=== PATIENT | female | born 1980 | race American Indian/Alaskan Native ===

== ENCOUNTER 2016-12-21 08:03 | Emergency (ER) | payer SELFPAY ==
[2016-12-21 10:43] LABS: Bilirubin,Urine NEG (Negative); Blood,Urine NEG (Negative); Ketones,Urine NEG (Negative); Leukocyte Esterase,Urine MOD (Negative); Nitrite,Urine NEG (Negative); Protein,Urine <15 mg/dL mg/dL (Negative); Urobilinogen,Urine < 2.0 mg/dL (<2.0)
--- NOTE | 2016-12-21 12:25 | Emergency Department Report ---
ED Female HPI - General Chief complaint: Urogenital-Female Stated complaint: YEAST INFECTION Time Seen by Provider: 12/21/16 11:18 Source: patient Mode of arrival: Ambulatory Limitations: No Limitations - History of Present Illness Initial comments: 36 y/o female presents to ER with complaints of white to cream coloured discharge 2 days. There is an associated vulva pruritus. Patient denies dyspareunia, no dysuria, no nausea vomiting or diarrhea.No fever. MD Complaint: vaginal discharge -: Gradual, days(s) (2) Location: other (vulva pruritus) Radiation: non-radiating Severity: moderate Improves with: none Worsens with: none Are you Now?: No Associated Symptoms: vaginal discharge. denies: vaginal bleeding, abdominal pain, nausea/vomiting, headaches, loss of appetite, dysuria, hematuria, rash, shortness of breath, syncope, weakness, other - Related Data Sexually active: Yes (monogamous relationship) Previous Rx's Medication Instructions Recorded Last Taken Type Fluconazole [Diflucan TAB] 150 mg PO ONCE #1 tablet 12/21/16 Unknown Rx Mupirocin [Bactroban 2%] 1 applic TP TID #1 tube 12/21/16 Unknown Rx metroNIDAZOLE [Flagyl] 500 mg PO Q12HR #14 tab 12/21/16 Unknown Rx Allergies Allergy/AdvReac Type Severity Reaction Status Date / Time No Known Allergies Allergy Unverified 12/21/16 08:09 ED Review of Systems ROS: Stated complaint: YEAST INFECTION Other details as noted in HPI Comment: All other systems reviewed and negative Constitutional: denies: diaphoresis, fever, malaise Eyes: denies: eye pain, eye discharge, vision change ENT: denies: throat pain, dental pain, hearing loss Respiratory: denies: cough, orthopnea, shortness of breath, SOB with exertion Cardiovascular: denies: chest pain, palpitations, dyspnea on exertion, edema, syncope Endocrine: no symptoms reported. denies: excessive sweating, flushing, intolerance to cold Gastrointestinal: denies: abdominal pain, nausea, diarrhea, constipation, hematemesis, melena Genitourinary: discharge (vaginal). denies: urgency, frequency, hematuria Musculoskeletal: denies: back pain, joint swelling, arthralgia Skin: pruritus (vulva region) Neurological: denies: headache, weakness, numbness, paresthesias, confusion ED Past Medical Hx - Past Medical History Previous Medical History?: No - Surgical History Past Surgical History?: No - Social History Smoking Status: Never Smoker Substance Use Type: None - Medications Home Medications: Home Medications Medication Instructions Recorded Confirmed Last Taken Type Fluconazole [Diflucan TAB] 150 mg PO ONCE #1 tablet 12/21/16 Unknown Rx Mupirocin [Bactroban 2%] 1 applic TP TID #1 tube 12/21/16 Unknown Rx metroNIDAZOLE [Flagyl] 500 mg PO Q12HR #14 tab 12/21/16 Unknown Rx ED Physical Exam - General Limitations: No Limitations General appearance: alert, in no apparent distress - Head Head exam: Present: atraumatic, normocephalic, normal inspection - Eye Eye exam: Present: normal appearance, PERRL, EOMI. Absent: scleral icterus, conjunctival injection, nystagmus Pupils: Present: normal accommodation - ENT ENT exam: Present: normal exam, normal orophraynx, mucous membranes moist - Neck Neck exam: Present: normal inspection, full ROM. Absent: tenderness, lymphadenopathy - Respiratory Respiratory exam: Present: normal lung sounds bilaterally. Absent: respiratory distress, wheezes, chest wall tenderness, accessory muscle use - Cardiovascular Cardiovascular Exam: Present: regular rate, normal rhythm, normal heart sounds. Absent: tachycardia, systolic murmur, diastolic murmur - GI/Abdominal GI/Abdominal exam: Present: soft, normal bowel sounds. Absent: distended, tenderness, guarding, rebound, hyperactive bowel sounds, hypoactive bowel sounds , organomegaly - Rectal Rectal exam: Present: deferred - External exam: Present: erythema (seen right labia region) Speculum exam: Present: vaginal discharge (whitish, , like cottage chese), cervical discharge. Absent: vaginal bleeding, foreign body, tissue, laceration Bi-manual exam: Present: normal bi-manual exam. Absent: cervical motion tendernes, adnexal tenderness, adnexal mass, uterine enlargement, uterine tenderness - Extremities Exam Extremities exam: Present: normal inspection, full ROM, normal capillary refill - Back Exam Back exam: Present: normal inspection, full ROM - Neurological Exam Neurological exam: Present: alert, oriented X3, CN II-XII intact, normal gait ED Course Vital Signs 12/21/16 08:06 Temperature 98 F Pulse Rate 76 Blood Pressure 130/78 O2 Sat by Pulse 100 Oximetry ED Medical Decision Making - Medical Decision Making Carlos mcintyre seen in wet prep Critical Care Time: No Critical care attestation.: If time is entered above; I have spent that time in minutes in the direct care of this critically ill patient, excluding procedure time. ED Disposition Clinical Impression: Bacterial vaginosis Disposition: DC-01 TO HOME OR SELFCARE Is pt being admited?: No Does the pt Need Aspirin: No Condition: Stable Instructions: Bacterial Vaginosis (ED) Additional Instructions: Follow up with your Endo Tech in 2-3 days Prescriptions: Fluconazole [Diflucan TAB] 150 mg PO ONCE #1 tablet metroNIDAZOLE [Flagyl] 500 mg PO Q12HR #14 tab Mupirocin [Bactroban 2%] 1 applic TP TID #1 tube Referrals: PRIMARY CARE, [Primary Care Provider] - 3-5 Days Forms: STI Treatment and Prevention Time of Disposition: 13:19
[2016-12-21 13:55] VITALS: BP 116/81
== END 2016-12-21 13:55 | disposition home or self-care (01) ==
LOC: ED 08:03
DX: N76.0 Acute vaginitis (principal)
CPT/HCPCS: 81001; 81025; 87210; 87591; 99284

== ENCOUNTER 2018-12-22 08:08 | Outpatient (CLI) | payer OTHER ==
[2018-12-22 09:18] VITALS: BP 129/72
== END 2018-12-22 09:33 | disposition home or self-care (01) ==
LOC: TRG 08:08
PROVIDERS: ATTEND Obstetrics & Gynecology
DX: O47.03 False labor before 37 completed weeks of gestation, third trimester (principal); Z3A.30 30 weeks gestation of pregnancy